=== PATIENT | female | born 1970 | race Caucasian/White ===

== ENCOUNTER 2017-01-25 17:09 | Inpatient (IN) | payer OTHER ==
[~2017-01-25] VITALS: Ht 162.6 cm; Wt 79.4 kg
--- NOTE | ~2017-01-25 | EKG ---
[address] [address] ELECTROCARDIOGRAM REPORT Name: BAILEY PAZ Room #: 538-P ADM IN M.R.#: [id number] Admission: 01/25/17 Attend Phys: Theodore Noonan DO Discharge: Date of : 72 Report #: [id number] THIS REPORT FOR: //name// [facility] Test Date: 2017-01-25 Test Time: 22:39:32 Pat Name: BAILEY PAZ Department: Room: 538 Gender: F Animal Behaviorist: Bonnie MCKEON : 1970 Requested By: Marjan Mcclellan Order Number: [id number] MD: Walter Padgett Measurements Intervals [place] Rate: 83 P: 46 SD: 161 QRS: -14 QRSD: 89 T: 26 QT: 380 QTc: 447 Interpretive Statements Sinus rhythm No significant abnormality No previous ECG available for comparison Electronically Signed On 01-26-2017 8:35:09 CDT by Walter Padgett [email or web address] <ELECTRONICALLY SIGNED> By: Walter Padgett MD, [facility] 01/26/17 0835 [id number] Walter Padgett MD, FACC /EPI
--- NOTE | ~2017-01-25 | HC ---
[facility] [place] [address] [place] [address] CONSULTATION Name: ADRIENNEEUNBAILEY HOMER Room #: 538-P ADM IN M.R.#: [id number] Admission: 01/25/17 Attend Phys: Theodore Noonan DO Discharge: Date of : 72 Report #: [id number] THIS REPORT FOR: //name// CC: FAM unknown Theodore Noonan INFECTIOUS DISEASE CONSULTATION REASON FOR CONSULTATION: Evaluate pneumonia. HISTORY OF PRESENT ILLNESS: The patient is a 46-year-old admitted with a 6-day history of fever, chills, sweats, myalgias, nonproductive cough, and diarrhea. She had a temperature of 103 and 104 degrees at home. From admission date 01/25/2017, she had a temperature of 103 degrees, yesterday 102.8. Today so far has been afebrile. She remains short of breath with activity. She has required no oxygen supplementation. Chest x-ray showed basilar posterior infiltrate on lateral view. Today, her chest x-ray shows fairly extensive bibasilar infiltrates. She does appear to have some cephalization of flow. She has been receiving IV fluids. She is on Levaquin. No travel outside the [place] although she has been falling on airplanes fairly extensively over the last 2 months. She has pet dogs. She has a fiance. She has been around no children. REVIEW OF SYSTEMS: Denies any headache, rash, pharyngitis symptoms, sinus congestion, postnasal drip. She has got some mid right chest and posterior chest discomfort on deep inspiration. No pleuritic chest pains per se. No abdominal pain. No dysuria, frequency, hematuria. Stools have been controlled with Imodium. ALLERGIES: None. MEDICATIONS: None prior to her admission other than one dose of azithromycin that she received in the outpatient clinic. PAST MEDICAL HISTORY: Otherwise remarkable for cholecystitis and cholecystectomy. FAMILY HISTORY: Noncontributory. SOCIAL HISTORY: Nonsmoker, no significant alcohol intake, no recent immunizations. She has not had influenza vaccination. PHYSICAL EXAMINATION: VITAL SIGNS: She is afebrile, hemodynamically stable. She was edematous. HEENT: Unremarkable. NECK: Supple, no adenopathy. [facility] [address] [place] [address] CONSULTATION Name: BAILEY PAZ [facility] Room #: 538-P ADM IN M.R.#: [id number] Admission: 01/25/17 Attend Phys: Theodore Noonan DO Discharge: Date of : 72 Report #: [id number] LUNGS: Decreased breath sounds in the bases with few crackles, no rub. CARDIOVASCULAR: Heart was regular without murmur or gallop. ABDOMEN: Soft, nontender, no hepatosplenomegaly or mass. EXTREMITIES: Unremarkable. LABORATORY STUDIES: Chest x-ray, bilateral lower lobe infiltrates. CT scan of the chest showed the same. Sodium 141, potassium 3.9, bicarbonate of 26, creatinine 0.6, hemoglobin 12.4, platelet count 126,000. WBC 3.8. Differential unremarkable. Liver function tests were normal. Urinalysis unremarkable. Blood cultures are negative to date. IMPRESSION AND PLAN: A 46-year-old with community-acquired pneumonia, now with bilateral infiltrates and still short of breath. I am suspecting that part of this is due to increased fluid resuscitation and edema. She is up about 5 liters from admission. Recommend holding her IV fluids. Change Levaquin to p.o. Check urine antigens, HIV, immunoglobulin, IgG, give dose of Lasix. We will see how she feels in the morning before considering outpatient treatment. <ELECTRONICALLY SIGNED> By: Preet Dasilva MD 01/28/17 0942 [id number] Preet Dasilva MD /nt
[2017-01-25 17:44] VITALS: BP 130/80
[2017-01-25] MEDS ORDERED: VENTOLIN HFA 1818 GM INH (17:45)
[2017-01-25] MEDS ORDERED: AZITHROMYCIN 2250 MG PO (17:46)
[2017-01-25] MEDS ORDERED: TESSALON PERLE100 MG PO (17:46)
[2017-01-25 18:01] LABS: URINE BLOOD 1+ (Negative); URINE COLOR YELLOW; URINE GLUCOSE-RANDOM* NEGATIVE (Negative); URINE KETONES 1+ (Negative); URINE NITRITE NEGATIVE (Negative); URINE PROTEIN (DIPSTICK) 2+ (Negative); URINE SPECIFIC GRAVITY 1.015 (1.003-1.035); URINE UROBILINOGEN 0.2 E.U./dl (0.2-1.0)
[2017-01-25 18:11] LABS: ICTOTEST (BILI CONFIRMATORY) Negative (Negative); URINE BILIRUBIN NEGATIVE (Negative)
[2017-01-25 18:13] LABS: SQUAMOUS >10 Many /LPF (0-3)
[2017-01-25 18:14] LABS: AMORPHOUS URATES Moderate /LPF (None Seen); BACTERIA None Seen /HPF (None Seen); CASTS None Seen /LPF (None Seen); CRYSTALS None Seen /LPF (None Seen); URINE RBC 0-2 Rare /HPF (0-2); URINE WBC None Seen /HPF (0-5)
[2017-01-25 18:27] LABS: ABSOLUTE NEUTROPHILS 3.7 thou/uL (1.4-8.2); BASOPHILS 0.2 % (0.0-2.0); HEMATOCRIT 42.7 % (37.0-47.0); HEMOGLOBIN 15.1 gm/dL (12.0-15.0); LYMPHOCYTES 18.2 % (24.0-44.0); MCH 30.8 pg (26.0-34.0); MCHC 35.4 g/dL (28.0-37.0); MCV 87.1 fL (80.0-100.0); MONOCYTES 4.6 % (1.0-8.0); PLATELET COUNT 127 thou/uL (150-400); RDW 12.3 % (10.5-14.5); WBC 4.8 thou/uL (4.0-11.0)
[2017-01-25 18:28] LABS: MANUAL DIFF NO
[2017-01-25 18:49] LABS: ALBUMIN 3.5 g/dL (3.4-5.0); CALCIUM 8.6 mg/dL (8.5-10.1); TOTAL BILIRUBIN 0.5 mg/dL (<0.1-1.0); TOTAL PROTEIN 7.7 g/dL (6.4-8.2)
[2017-01-25 18:54] LABS: POTASSIUM 2.9 mmol/L (3.5-5.1)
[2017-01-25 20:33] VITALS: BP 110/80
[2017-01-26 00:09] VITALS: BP 119/81
[2017-01-26 02:01] LABS: HEMATOCRIT 36.4 % (37.0-47.0); MCH 30.4 pg (26.0-34.0); MCHC 34.9 g/dL (28.0-37.0); RBC 4.18 mil/uL (4.20-5.00); RDW 12.5 % (10.5-14.5); WBC 4.3 thou/uL (4.0-11.0)
[2017-01-26 02:03] LABS: HEMOGLOBIN 12.7 gm/dL (12.0-15.0)
[2017-01-26 02:16] LABS: ALBUMIN 2.5 g/dL (3.4-5.0); CALCIUM 7.3 mg/dL (8.5-10.1); CREATININE 0.8 mg/dL (0.6-1.0); POTASSIUM 3.1 mmol/L (3.5-5.1); TOTAL BILIRUBIN 0.4 mg/dL (<0.1-1.0); TOTAL PROTEIN 5.8 g/dL (6.4-8.2)
[2017-01-26 08:10] VITALS: BP 113/78
[2017-01-26 15:00] VITALS: BP 131/91
[2017-01-26 16:30] VITALS: BP 134/92
[2017-01-26 20:00] VITALS: BP 116/78
[2017-01-27 04:00] VITALS: BP 123/87
[2017-01-27 04:40] LABS: ABSOLUTE NEUTROPHILS 2.4 thou/uL (1.4-8.2); BASOPHILS 0.1 % (0.0-2.0); HEMATOCRIT 35.7 % (37.0-47.0); HEMOGLOBIN 12.4 gm/dL (12.0-15.0); LYMPHOCYTES 27.2 % (24.0-44.0); MCH 30.6 pg (26.0-34.0); MCHC 34.7 g/dL (28.0-37.0); MCV 88.1 fL (80.0-100.0); MONOCYTES 9.7 % (1.0-8.0); PLATELET COUNT 126 thou/uL (150-400); RBC 4.05 mil/uL (4.20-5.00); RDW 12.9 % (10.5-14.5); WBC 3.8 thou/uL (4.0-11.0)
[2017-01-27 04:44] LABS: CALCIUM 7.3 mg/dL (8.5-10.1); CREATININE 0.6 mg/dL (0.6-1.0); MANUAL DIFF NO; POTASSIUM 3.9 mmol/L (3.5-5.1)
[2017-01-27] MEDS ORDERED: LEVAQUIN 500 M500 M2 PO (08:28)
[2017-01-27 08:56] VITALS: BP 117/82
[2017-01-27 16:00] VITALS: BP 133/91
[2017-01-27 19:17] VITALS: BP 126/83
[2017-01-28 04:04] VITALS: BP 125/79
[2017-01-28 07:39] VITALS: BP 127/89
[2017-01-28 16:04] VITALS: BP 138/95
[2017-01-28 17:42] VITALS: BP 138/95
[2017-01-28 18:06] LABS: HIV ANTIBODY Non Reactive (Non Reactive)
== END 2017-01-28 19:00 | disposition home or self-care (01) | DRG 871 ==
LOC: ER 17:09 → 5S 19:11 → EROBS 19:11 → 5S 19:47
PROVIDERS: Family Medicine; Nurse Practitioner; Physician Assistant; Specialist
DX: A41.9 Sepsis, unspecified organism (principal); J18.9 Pneumonia, unspecified organism; E43 Unspecified severe protein-calorie malnutrition; R00.0 Tachycardia, unspecified; E87.6 Hypokalemia; Z90.49 Acquired absence of other specified parts of digestive tract; Z99.81 Dependence on supplemental oxygen
CPT/HCPCS: 10086